=== PATIENT | female | born 1985 | race Caucasian/White ===

== ENCOUNTER 2016-09-20 22:26 | Emergency (ER) | payer SELFPAY ==
[~2016-09-20] VITALS: Ht 154.9 cm; Wt 99.8 kg
[~2016-09-20 22:26] MED LIST: AMOX1TAB61 PO; HYDR15SO4 PO
[2016-09-20 23:02] VITALS: BP 146/102
[2016-09-20] MEDS ORDERED: HYDR-971 PO (23:46)
[2016-09-20] MEDS ORDERED: AMOX1TAB61 PO (23:46)
--- NOTE | 2016-09-20 23:46 | PHYS DOC ---
Past Medical History Past Medical History: Anxiety, Kidney Stone, Other Additional Past Medical Histor: PTSD, PCOS Past Surgical History: Appendectomy, Tonsillectomy, Other Additional Past Surgical Histo: KIDNEY STONE SURGERY WITH PAST STENTS, RT,LT KNEE SURGERY Alcohol Use: Occasionally Drug Use: None Adult General Chief Complaint Chief Complaint: EARACHE/EAR PAIN [facility] HPI Patient is a 30 year old female who presents with right ear pain for three days. States here 08/06/16 and had a ruptured eardrum and completed antibiotics and was better until the head congestion started. Took 800mg Ibuprofen at home without relief. Pain worsens with bending, coughing. Denies dizziness or hearing loss Review of Systems Review of Systems Constitutional: Denies fever or chills Eyes: Denies change in visual acuity, redness, or eye pain HENT: Nasal congestion, right ear pain Respiratory: COugh Cardiovascular: No additional information not addressed in [facility] [] GI: Denies abdominal pain, nausea, vomiting, bloody stools or diarrhea : Denies dysuria or hematuria Musculoskeletal: Denies back pain or joint pain Integument: Denies rash or skin lesions Neurologic: Denies headache, focal weakness or sensory changes Endocrine: Denies polyuria or polydipsia Allergies Allergies Allergies Coded Allergies Type Severity Reaction Last Updated Verified meperidine Allergy Intermediate RASH, SOA 07/29/16 Yes morphine Allergy Intermediate RASH, SOA 07/29/16 Yes Physical Exam Physical Exam Constitutional: Well developed, well nourished, no acute distress, non-toxic appearance. HENT: Normocephalic, atraumatic, bilateral external ears normal, oropharynx moist, no oral exudates. Right TM ruptured. Bilateral tonsils 3+ without exudate. Eyes: PERRLA, EOMI, conjunctiva normal, no discharge. Neck: Normal range of motion, no tenderness, supple, no stridor. Cardiovascular:Heart rate regular rhythm, no murmur Lungs & Thorax: Bilateral breath sounds clear to auscultation Abdomen: Bowel sounds normal, soft, no tenderness, no masses, no pulsatile masses. Skin: Warm, dry, no erythema, no rash. Back: No tenderness, no CVA tenderness. Extremities: No tenderness, no cyanosis, no clubbing, ROM intact, no edema. Neurologic: Alert and oriented X 3, normal motor function, normal sensory function, no focal deficits noted. Psychologic: Affect normal, judgement normal, mood normal. [] Current Patient Data Vital Signs Vital Signs Date Time Temp Pulse Resp B/P Pulse Ox O2 Delivery O2 Flow Rate FiO2 09/20/16 23:02 97.7 79 20 96 Room Air 97.7 EKG EKG [] Radiology/Procedures Radiology/Procedures [] Impressions: 1. Viral illness 2. Rigth TM perforation Course & Med Decision Making Course & Med Decision Making Pertinent Labs and Imaging studies reviewed. (See chart for details) [] Dragon Disclaimer Dragon Disclaimer This electronic medical record was generated, in whole or in part, using a voice recognition dictation system. Departure Departure Impression: Primary Impression: Tympanic membrane perforation Additional Impression: Viral illness Disposition: HOME, SELF-CARE Condition: STABLE Referrals: NO PCP (PCP) Patient Instructions: Eardrum Perforation, Tsun-ii-Kins, Viral Infections, Easy -To-Read Additional Instructions: 1. Take medication as prescribed 2. Follow up with primary doctor in 1-2 days 3. Return if problems or concerns Scripts Hydrocodone/Apap 5-325 ([place] 5-325 Tablet)1 Each Tablet1 Tab PO PRN Q6HRS PRN PAIN #10 TAB Ref 0 Prov:JACOBO XIAO APRN 09/20/16 Amoxicillin/Potassium Clav (Augmentin 875-125 Tablet)1 Each Tablet1 Tab PO BID # 20 TAB Prov:JACOBO XIAO APRN 09/20/16 Problem Qualifiers JACOBO XIAO APRN Sep 20, 2016 23:46
== END 2016-09-20 23:51 | disposition home or self-care (01) ==
LOC: ER 22:26
DX: H72.91 Unspecified perforation of tympanic membrane, right ear (principal); B34.9 Viral infection, unspecified; F41.9 Anxiety disorder, unspecified; F43.10 Post-traumatic stress disorder, unspecified; Z96.0 Presence of urogenital implants; Z88.8 Allergy status to other drugs, medicaments and biological substances; Z88.5 Allergy status to narcotic agent
CPT/HCPCS: 99283

== ENCOUNTER 2017-11-05 14:37 | Emergency (ER) | payer SELFPAY ==
[2017-11-05 14:56] LABS: URINE HCG POC HCG NEGATIVE (Negative)
[2017-11-05 15:19] LABS: ADD MAN DIFF? NO
[2017-11-05 15:21] LABS: BASO # 0.1 x10^3/uL (0.0-0.2); BASO % 1 % (0-3); EOS # 0.3 x10^3/uL (0.0-0.7); EOS % 3 % (0-3); HEMATOCRIT 45.2 % (36.0-47.0); HEMOGLOBIN 15.3 g/dL (12.0-15.5); LYMPH # 3.1 x10^3/uL (1.0-4.8); LYMPH % 30 % (24-48); MEAN CORPUSCULAR HEMOGLOBIN 30 pg (25-35); MEAN CORPUSCULAR HGB CONC 34 g/dL (31-37); MEAN CORPUSCULAR VOLUME 88 fL (79-100); MONO # 0.7 x10^3/uL (0.0-1.1); MONO % 7 % (0-9); NEUT # 6.3 x10^3uL (1.8-7.7); NEUT % 60 % (31-73); PLATELET COUNT 344 x10^3/uL (140-400); RED BLOOD COUNT 5.14 x10^6/uL (3.50-5.40); WHITE BLOOD COUNT 10.5 x10^3/uL (4.0-11.0)
[2017-11-05] MEDS: IV NORMAL SALINE 1000ML BAG 1,000 ML IV ×2 (15:22)
[2017-11-05 15:23] LABS: BILIRUBIN,URINE NEGATIVE (NEG); CLARITY,URINE CLEAR; COLOR,URINE YELLOW; GLUCOSE,URINE NEGATIVE (NEG); NITRITE,URINE NEGATIVE (NEG); PH,URINE 6.5; PROTEIN,URINE NEGATIVE (NEG-TRACE); UROBILINOGEN,URINE 0.2 mg/dL (0.2 mg/dL)
[2017-11-05 15:26] LABS: RBC,URINE >40 /HPF (0-2)
[2017-11-05 15:27] LABS: BACTERIA,URINE FEW /HPF (0-FEW); SQUAMOUS EPITHELIAL CELL,UR MANY /LPF
[2017-11-05 15:38] LABS: ANION GAP 4 (6-14); BLOOD UREA NITROGEN 12 mg/dL (7-20); BUN/CREATININE RATIO 13 (6-20); CALCIUM 9.1 mg/dL (8.5-10.1); CARBON DIOXIDE 31 mmol/L (21-32); CHLORIDE 107 mmol/L (98-107); CREATININE 0.9 mg/dL (0.6-1.0); GFR 72.6; GLUCOSE 83 mg/dL (70-99); POTASSIUM 3.6 mmol/L (3.5-5.1); SODIUM 142 mmol/L (136-145)
[2017-11-05 15:46] LABS: ALBUMIN 3.8 g/dL (3.4-5.0); ALK PHOS 72 U/L (46-116); ALT (SGPT) 47 U/L (14-59); AST (SGOT) 22 U/L (15-37); LIPASE 99 U/L (73-393); TOTAL BILIRUBIN 0.1 mg/dL (0.2-1.0); TOTAL PROTEIN 7.7 g/dL (6.4-8.2)
[2017-11-05] MEDS: ONDANSETRON PF 4 MG/2 ML VIAL. IV ×2 (15:47)
[2017-11-05] MEDS: fentaNYL PF VIAL 100 MCG/2 ML VIAL IV ×6 (15:48→17:09)
== END 2017-11-05 18:29 | disposition home or self-care (01) ==
LOC: ER 14:37
DX: N20.0 Calculus of kidney (principal); F41.9 Anxiety disorder, unspecified; F43.10 Post-traumatic stress disorder, unspecified; E28.2 Polycystic ovarian syndrome; Z87.442 Personal history of urinary calculi; Z88.5 Allergy status to narcotic agent; Z88.8 Allergy status to other drugs, medicaments and biological substances
CPT/HCPCS: 36415; 74176; 80053; 81001; 81025; 83690; 85025; 87086; 96361; 96374; 96375; 96376; 99285-25; J2405; J3010; J7030

== ENCOUNTER 2017-11-07 02:16 | Inpatient (IN) | payer SELFPAY ==
[2017-11-07 02:36] LABS: URINE HCG POC HCG NEGATIVE (Negative)
[2017-11-07] MEDS: IV NORMAL SALINE 1000ML BAG 1,000 ML IV ×8 (02:41→20:38)
[2017-11-07] MEDS: fentaNYL PF VIAL 100 MCG/2 ML VIAL IV ×6 (02:41→03:40)
[2017-11-07] MEDS: ONDANSETRON PF 4 MG/2 ML VIAL. IV ×2 (02:41)
[2017-11-07 03:04] LABS: ADD MAN DIFF? NO
[2017-11-07 03:08] LABS: BASO % 0 % (0-3); EOS # 0.3 x10^3/uL (0.0-0.7); EOS % 3 % (0-3); HEMATOCRIT 42.6 % (36.0-47.0); HEMOGLOBIN 14.6 g/dL (12.0-15.5); LYMPH # 4.1 x10^3/uL (1.0-4.8); LYMPH % 39 % (24-48); MEAN CORPUSCULAR HEMOGLOBIN 30 pg (25-35); MEAN CORPUSCULAR HGB CONC 34 g/dL (31-37); MEAN CORPUSCULAR VOLUME 88 fL (79-100); MONO # 0.6 x10^3/uL (0.0-1.1); MONO % 6 % (0-9); NEUT # 5.5 x10^3uL (1.8-7.7); NEUT % 53 % (31-73); PLATELET COUNT 361 x10^3/uL (140-400); RED BLOOD COUNT 4.86 x10^6/uL (3.50-5.40); RED CELL DISTRIBUTION WIDTH 13.8 % (11.5-14.5); WHITE BLOOD COUNT 10.5 x10^3/uL (4.0-11.0)
[2017-11-07 03:10] LABS: BILIRUBIN,URINE NEGATIVE (NEG); CLARITY,URINE CLEAR; COLOR,URINE YELLOW; GLUCOSE,URINE NEGATIVE (NEG); NITRITE,URINE NEGATIVE (NEG); PROTEIN,URINE NEGATIVE (NEG-TRACE); UROBILINOGEN,URINE 0.2 mg/dL (0.2 mg/dL)
[2017-11-07 03:17] LABS: BACTERIA,URINE FEW /HPF (0-FEW); RBC,URINE 20-40 /HPF (0-2); SQUAMOUS EPITHELIAL CELL,UR MOD /LPF
[2017-11-07 03:19] LABS: ANION GAP 8 (6-14); BLOOD UREA NITROGEN 13 mg/dL (7-20); BUN/CREATININE RATIO 13 (6-20); CARBON DIOXIDE 29 mmol/L (21-32); CHLORIDE 106 mmol/L (98-107); GFR 64.3; GLUCOSE 108 mg/dL (70-99); POTASSIUM 3.9 mmol/L (3.5-5.1); SODIUM 143 mmol/L (136-145)
[2017-11-07 03:25] LABS: ALBUMIN 3.4 g/dL (3.4-5.0); ALK PHOS 64 U/L (46-116); ALT (SGPT) 41 U/L (14-59); AST (SGOT) 19 U/L (15-37); LIPASE 90 U/L (73-393); TOTAL BILIRUBIN 0.1 mg/dL (0.2-1.0); TOTAL PROTEIN 6.8 g/dL (6.4-8.2)
[2017-11-07] MEDS ORDERED: KETOROLAC 15 MG/ML VIAL. ×2 (03:33)
[2017-11-07] MEDS: KETOROLAC 15 MG/ML VIAL. IV ×2 (03:37)
[2017-11-07] MEDS: HYDROmorphone 2 MG/ML VIAL IV ×6 (04:19→05:55)
[2017-11-07] MEDS ORDERED: ONDANSETRON PF 4 MG/2 ML VIAL. IV ×4 (04:45→12:45)
[2017-11-07] MEDS: METOCLOPRAMIDE HCL 10 MG/2 ML VIAL. IV ×2 (04:48)
[2017-11-07] MEDS: MORPHINE SULFATE 4 MG/ML DISP.SYRIN. IV ×6 (07:25→11:19)
[2017-11-07] MEDS: TAMSULOSIN 0.4 MG CAP.ER.24H. PO ×2 (08:49)
[2017-11-07] MEDS ORDERED: PROPOFOL 20 ML IV ×2 (11:17)
[2017-11-07] MEDS ORDERED: LIDOCAINE 2% PF Vial for OR 5 ML VIAL. ×2 (11:17)
[2017-11-07] MEDS ORDERED: ONDANSETRON PF 4 MG/2 ML VIAL. ×2 (11:17)
[2017-11-07] MEDS ORDERED: DEXAMETHASONE SOD PHOS 20 MG/5 ML VIAL. ×2 (11:17)
[2017-11-07] MEDS ORDERED: fentaNYL PF VIAL 100 MCG/2 ML VIAL ×2 (11:18)
[2017-11-07] MEDS ORDERED: SEVOFLURANE 31 TO 60 MINUTES. IH ×2 (12:14)
[2017-11-07] MEDS: IOHEXOL 300 MG/ML 100ML VIAL. ×2 (12:21)
[2017-11-07] MEDS: IV RINGERS,LACTATED 1000ML 1,000 ML IV ×2 (12:39)
[2017-11-07] MEDS ORDERED: ePHEDrine PF IN SALINE 50 MG/5 ML DISP.SYRIN IV (12:40)
[2017-11-07] MEDS ORDERED: PROCHLORPERAZINE 10 MG/2 ML VIAL. IV ×2 (12:45)
[2017-11-07] MEDS ORDERED: LIDOCAINE 1% PF 2 ML VIAL. ID ×2 (12:45)
[2017-11-07] MEDS: OXYBUTYNIN CHLORIDE 5 MG TABLET PO ×2 (14:47)
[2017-11-07] MEDS: KETOROLAC 30 MG/ML INJ. IV ×4 (15:51→23:00)
[2017-11-07] MEDS: MORPHINE IR 15 MG TABLET PO ×2 (18:14)
[2017-11-08] MEDS: MORPHINE IR 15 MG TABLET PO ×4 (01:02→10:12)
[2017-11-08 04:55] LABS: ADD MAN DIFF? NO
[2017-11-08 05:01] LABS: BASO % 0 % (0-3); EOS % 0 % (0-3); HEMATOCRIT 38.5 % (36.0-47.0); HEMOGLOBIN 12.7 g/dL (12.0-15.5); LYMPH # 1.5 x10^3/uL (1.0-4.8); LYMPH % 13 % (24-48); MEAN CORPUSCULAR HEMOGLOBIN 29 pg (25-35); MEAN CORPUSCULAR HGB CONC 33 g/dL (31-37); MEAN CORPUSCULAR VOLUME 88 fL (79-100); MONO # 0.8 x10^3/uL (0.0-1.1); MONO % 7 % (0-9); NEUT # 8.8 x10^3uL (1.8-7.7); NEUT % 79 % (31-73); PLATELET COUNT 309 x10^3/uL (140-400); RED BLOOD COUNT 4.36 x10^6/uL (3.50-5.40); RED CELL DISTRIBUTION WIDTH 14.2 % (11.5-14.5); WHITE BLOOD COUNT 11.1 x10^3/uL (4.0-11.0)
[2017-11-08 05:35] LABS: ANION GAP 10 (6-14); BLOOD UREA NITROGEN 14 mg/dL (7-20); CARBON DIOXIDE 25 mmol/L (21-32); CHLORIDE 108 mmol/L (98-107); GFR 64.3; GLUCOSE 158 mg/dL (70-99); POTASSIUM 3.8 mmol/L (3.5-5.1); SODIUM 143 mmol/L (136-145)
[2017-11-08] MEDS: KETOROLAC 30 MG/ML INJ. IV ×2 (10:12)
[2017-11-08] MEDS: OXYBUTYNIN CHLORIDE 5 MG TABLET PO ×2 (10:12)
[2017-11-08] MEDS: TAMSULOSIN 0.4 MG CAP.ER.24H. PO ×2 (10:13)
[2017-11-08] MEDS ORDERED: HYDROcodone/APAP 5/325MG 1 TAB TABLET PO ×2 (10:45)
[2017-11-17 18:12] LABS: CA OXALATE MONOHYDR 90 % (.); CALCIUM PHOSPHATE 10 % (.); COLOR Brown (.); STONE WEIGHT 94.6 mg (.)
== END 2017-11-08 13:30 | disposition home or self-care (01) | DRG 669 ==
LOC: ER 02:16 → 5 SOUTH 05:12
PROC: BT1D1ZZ Fluoroscopy of Right Kidney, Ureter and Bladder using Low Osmolar Contrast (ICD-10-PCS; principal; 2017-11-07 12:00)
PROC: 0T768DZ Dilation of Right Ureter with Intraluminal Device, Via Natural or Artificial Opening Endoscopic (ICD-10-PCS; 2017-11-07 12:00)
PROC: 0TC68ZZ Extirpation of Matter from Right Ureter, Via Natural or Artificial Opening Endoscopic (ICD-10-PCS; 2017-11-07 12:00)
DX: N13.2 Hydronephrosis with renal and ureteral calculous obstruction (principal); E66.01 Morbid (severe) obesity due to excess calories; Z68.42 Body mass index [BMI] 45.0-49.9, adult; K76.0 Fatty (change of) liver, not elsewhere classified; E28.2 Polycystic ovarian syndrome; F17.210 Nicotine dependence, cigarettes, uncomplicated; F43.10 Post-traumatic stress disorder, unspecified; Z87.442 Personal history of urinary calculi; Z90.49 Acquired absence of other specified parts of digestive tract; Z91.410 Personal history of adult physical and sexual abuse; Z88.8 Allergy status to other drugs, medicaments and biological substances
CPT/HCPCS: 36415; 74176; 74420; 80048; 80053; 81001; 81025; 82365; 83690; 85025; 87086; 96361; 96374; 96375; 99285; 99285-25; C1769; C2617; J0690; J1100; J1170; J1885; J2270; J2405; J2704; J2765; J3010; J7030; Q9967